=== PATIENT | female | born 1990 | race Caucasian/White ===

== ENCOUNTER 2020-10-24 07:19 | Day surgery (SDC) | payer OTHER ==
[~2020-10-24] VITALS: Ht 177.8 cm; Wt 123.0 kg
[~2020-10-24 07:19] MED LIST: HYDACE5 PO; IRON PO; METO25ER PO; NAPR500 PO
[2020-10-24] MEDS ORDERED: METF500C PO (08:02)
[2020-10-24] MEDS ORDERED: CHROMIUM400 MCG PO (08:03)
== END 2020-10-24 10:01 | disposition home or self-care (01) ==
LOC: ORSCSDS 07:19
PROVIDERS: Obstetrics & Gynecology
PROC: 0UDB8ZX Extraction of Endometrium, Via Natural or Artificial Opening Endoscopic, Diagnostic (ICD-10-PCS; principal; 2020-10-24 08:30)
PROC: 0U5B8ZZ Destruction of Endometrium, Via Natural or Artificial Opening Endoscopic (ICD-10-PCS; principal; 2020-10-24 08:30)
DX: N92.0 Excessive and frequent menstruation with regular cycle (principal); D50.0 Iron deficiency anemia secondary to blood loss (chronic); I10 Essential (primary) hypertension; J45.909 Unspecified asthma, uncomplicated; E66.01 Morbid (severe) obesity due to excess calories; Z68.38 Body mass index [BMI] 38.0-38.9, adult; Z79.899 Other long term (current) drug therapy
CPT/HCPCS: 88305; A9270; J0690; J1100; J1885; J2250; J2405; J2704; J3010; J7120

== ENCOUNTER → 2022-10-22 | Outpatient (CLI) | payer OTHER ==
[~2022-10-22] MED LIST changes: +CHROMIUM400 MCG PO; +METF500C PO
[2022-10-22 19:42] LABS: Cholesterol 254 mg/dL (50-200); HDL Cholesterol 51 mg/dL (>39); LDL/HDL RATIO 2.7; Low Density Lipoprotein Chol 139 mg/dL (0-110); Prolactin 12.9 ng/mL; Triglycerides 321 mg/dL (30-140); Very Low Density Lipoprot Chol 64 mg/dL (6-28)
== END | disposition home or self-care (01) ==
LOC: LAB 14:25 → LAB SHORT 14:25
PROVIDERS: Family Medicine
DX: E28.2 Polycystic ovarian syndrome (principal); R73.9 Hyperglycemia, unspecified
CPT/HCPCS: 80061; 82627; 83036; 84146; 84443